=== PATIENT | male | born 1945 | race Caucasian/White ===

== ENCOUNTER 2021-11-05 06:05 | Inpatient (IN) ==
[2021-11-05] MEDS ORDERED: cefOXitin 2,000 MG in 0.9 % Sodium Chloride 20 ML IVP ONE (06:22)
[2021-11-05] MEDS ORDERED: Ringers Solution, Lactated 1,000 ML IVC SCH (06:30)
[2021-11-05] MEDS ORDERED: Acetaminophen IV 1,000 MG/100 ML BAG IVPB ONE (06:59)
[2021-11-05] MEDS ORDERED: Lidocaine -MPF 2% 2 ML VIAL ONE (07:18)
[2021-11-05] MEDS ORDERED: *HR* Succinylcholine 200 MG/10 ML VIAL IVP ONE (07:18)
[2021-11-05] MEDS ORDERED: Ondansetron 4 MG/2 ML VIAL ONE (07:18)
[2021-11-05] MEDS ORDERED: Lidocaine HCL 4 ML Topical Solution (Laryng-O-Jet Kit Sterile Pak) TP ONE (07:18)
[2021-11-05] MEDS ORDERED: *HR* FentaNYL (PF) 100 MCG/2 ML VIAL ONE ×3 (07:18→11:51)
[2021-11-05] MEDS ORDERED: *HR* Rocuronium Bromide 50 MG/5 ML VIAL ONE ×3 (07:18→10:58)
[2021-11-05] MEDS ORDERED: *HR* Remifentanil 1 MG VIAL IVP ONE ×3 (07:18→11:05)
[2021-11-05] MEDS ORDERED: *HR* Propofol 200 MG/20 ML VIAL IVP ONE (07:18)
[2021-11-05] MEDS ORDERED: Albumin Human 5% 12.5 GM/250 ML IV.SOLN ONE (07:30)
[2021-11-05] MEDS ORDERED: *HR* Vasopressin 20 UNIT/ML VIAL ONE (07:30)
[2021-11-05] MEDS ORDERED: *HR* Phenylephrine 10 MG/ML VIAL ONE (08:43)
[2021-11-05] MEDS ORDERED: Albumin Human 5% 0 GM/0 ML IV.SOLN ONE (10:43)
[2021-11-05] MEDS ORDERED: CefOXitin 1,000 MG VIAL ONE (12:03)
[2021-11-05] MEDS ORDERED: Sugammadex Sodium 200 MG/2 ML VIAL IV ONE (12:12)
[2021-11-05] MEDS ORDERED: CefOXitin 2,000 MG VIAL ONE (12:24)
[2021-11-05] MEDS ORDERED: *HR* HYDROMORPHONE 2 MG/ML VIAL ONE (12:57)
[2021-11-05] MEDS: *HR* HYDROmorphone PF 0.5 MG/0.5 ML SYRINGE IVP PRN ×2 (13:24→13:36)
[2021-11-05] MEDS ORDERED: *HR* Metoprolol 5 MG/5 ML VIAL IVP ONE (13:52)
[2021-11-05] MEDS: *HR* Metoprolol 5 MG/5 ML VIAL IVP PRN ×4 (14:15→14:51)
[2021-11-05] MEDS ORDERED: Naloxone 0.4 MG/ML INJ IVP PRN (16:02)
[2021-11-05] MEDS ORDERED: Ondansetron 4 MG/2 ML VIAL IVP PRN (16:02)
[2021-11-05] MEDS: *HR* HYDROmorphone PCA *PREMADE* 20 MG/1MG/ML (20mL) PCA VIAL IVC PRN (17:03)
[2021-11-05] MEDS: 0.9 % Sodium Chloride 1,000 ML IVC SCH ×2 (17:04→23:39)
[2021-11-05] MEDS: cefOXitin 1,000 MG in 0.9 % Sodium Chloride 10 ML IVP SCH ×2 (17:11→23:41)
[2021-11-05] MEDS: Acetaminophen IV 1,000 MG/100 ML BAG IVPB SCH ×2 (18:25→23:35)
[2021-11-06 05:34] LABS: Basophils % 0.1 %; Hematocrit 31.4 % (37.5-50.1); Hemoglobin 10.1 g/dL (12.9-16.9); Immature Granulocytes % 0.6 % (0-4); Lymphocytes # 0.8 K/mcL (0.6-4.6); Lymphocytes % 4.7 %; Mean Corpuscular HGB Conc 32.2 g/dL (31.6-35.5); Mean Corpuscular Hemoglobin 31.7 pg (28.0-33.3); Mean Corpuscular Volume 98.4 fL (83.0-100.0); Monocytes # 0.8 K/mcL (0.0-1.3); Monocytes % 4.8 %; Neutrophils # 14.4 K/mcL (1.6-8.9); Platelet Count 128 K/mcL (140-400); Red Blood Count 3.19 M/mcL (4.19-5.50); Red Cell Distribution Width 12.9 % (11.5-14.5); Segmented Neutrophils % 89.8 %; White Blood Count 16.1 K/mcL (4.3-11.1)
[2021-11-06 05:48] LABS: Calcium 8.1 mg/dL (8.6-10.3); Potassium 4.6 mEq/L (3.5-5.1)
[2021-11-06] MEDS: Acetaminophen IV 1,000 MG/100 ML BAG IVPB SCH ×4 (05:53→23:23)
[2021-11-06] MEDS ORDERED: 0.9 % Sodium Chloride 500 ML IVC ONE (06:51)
[2021-11-06] MEDS ORDERED: Fluticasone Propionate Nasal 50 MCG/SPRAY BOTTLE NS PRN (07:13)
[2021-11-06] MEDS ORDERED: Saliva Stimulant 44.3ml BOTTLE PO PRN (07:14)
[2021-11-06] MEDS ORDERED: Chloraseptic Spray 177 ML BOTTLE MM PRN (07:14)
[2021-11-06] MEDS: Pantoprazole 40 MG VIAL IVP SCH (09:24)
[2021-11-06] MEDS: 0.9 % Sodium Chloride 1,000 ML IVC SCH ×2 (09:30→17:13)
[2021-11-06] MEDS: cefOXitin 1,000 MG in 0.9 % Sodium Chloride 10 ML IVP SCH (16:57)
[2021-11-06] MEDS: *HR* Heparin 5,000 UNIT/ML VIAL SQ SCH (17:12)
[2021-11-06] MEDS: Artificial Tears SOLN 15 ML BOTTLE BOTH EYES SCH (21:18)
[2021-11-07] MEDS: 0.9 % Sodium Chloride 1,000 ML IVC SCH ×2 (02:31→12:23)
[2021-11-07 03:18] LABS: Basophils % 0.1 %; Hematocrit 28.2 % (37.5-50.1); Hemoglobin 9.1 g/dL (12.9-16.9); Immature Granulocytes % 0.6 % (0-4); Lymphocytes # 1.1 K/mcL (0.6-4.6); Lymphocytes % 8.4 %; Mean Corpuscular HGB Conc 32.3 g/dL (31.6-35.5); Mean Corpuscular Hemoglobin 31.6 pg (28.0-33.3); Mean Corpuscular Volume 97.9 fL (83.0-100.0); Mean Platelet Volume 12.1 fL (9.4-12.4); Monocytes # 0.6 K/mcL (0.0-1.3); Monocytes % 4.6 %; Neutrophils # 11.4 K/mcL (1.6-8.9); Platelet Count 117 K/mcL (140-400); Red Blood Count 2.88 M/mcL (4.19-5.50); Red Cell Distribution Width 13.1 % (11.5-14.5); Segmented Neutrophils % 86.3 %; White Blood Count 13.1 K/mcL (4.3-11.1)
[2021-11-07 03:39] LABS: Calcium 8.2 mg/dL (8.6-10.3); Magnesium 1.9 mg/dL (1.6-2.6); Potassium 4.3 mEq/L (3.5-5.1)
[2021-11-07] MEDS: Acetaminophen IV 1,000 MG/100 ML BAG IVPB SCH ×3 (05:26→17:20)
[2021-11-07] MEDS: *HR* Heparin 5,000 UNIT/ML VIAL SQ SCH ×2 (05:26→17:17)
[2021-11-07] MEDS: Pantoprazole 40 MG VIAL IVP SCH (09:26)
[2021-11-07] MEDS: Artificial Tears SOLN 15 ML BOTTLE BOTH EYES SCH ×4 (09:28→20:38)
[2021-11-07] MEDS: *HR* HYDROmorphone PCA *PREMADE* 20 MG/1MG/ML (20mL) PCA VIAL IVC PRN (09:39)
[2021-11-08 03:53] LABS: Basophils % 0.1 %; Eosinophils % 0.3 %; Hematocrit 28.6 % (37.5-50.1); Hemoglobin 9.4 g/dL (12.9-16.9); Immature Granulocytes % 0.5 % (0-4); Immature Platelets 7.3 % (1.1-6.1); Lymphocytes % 10.4 %; Mean Corpuscular HGB Conc 32.9 g/dL (31.6-35.5); Mean Corpuscular Hemoglobin 31.8 pg (28.0-33.3); Mean Corpuscular Volume 96.6 fL (83.0-100.0); Mean Platelet Volume 11.7 fL (9.4-12.4); Monocytes # 0.4 K/mcL (0.0-1.3); Monocytes % 4.4 %; Neutrophils # 8.3 K/mcL (1.6-8.9); Platelet Count 129 K/mcL (140-400); Red Blood Count 2.96 M/mcL (4.19-5.50); Red Cell Distribution Width 12.8 % (11.5-14.5); Segmented Neutrophils % 84.3 %; White Blood Count 9.9 K/mcL (4.3-11.1)
[2021-11-08 04:11] LABS: BUN/Creatinine Ratio 13 (6-26); Blood Urea Nitrogen 16 mg/dL (8-23); Calcium 8.3 mg/dL (8.6-10.3); Carbon Dioxide 23 mEq/L (23-29); Chloride 106 mEq/L (98-107); Glucose 81 mg/dL (70-105); Magnesium 1.8 mg/dL (1.6-2.6); Osmolality,Calculated 284 (280-300); Phosphorous 2.5 mg/dL (2.7-4.5); Potassium 4.1 mEq/L (3.5-5.1); Sodium 137 mEq/L (136-145); eGFR For African Americans > 60 (> 60); eGFR For Non-African Americans 56 (> 60)
[2021-11-08] MEDS: Acetaminophen IV 1,000 MG/100 ML BAG IVPB SCH ×5 (06:05→23:36)
[2021-11-08] MEDS: *HR* Heparin 5,000 UNIT/ML VIAL SQ SCH ×2 (06:05→17:14)
[2021-11-08] MEDS: Pantoprazole 40 MG VIAL IVP SCH (09:59)
[2021-11-08] MEDS: Artificial Tears SOLN 15 ML BOTTLE BOTH EYES SCH ×4 (10:00→21:51)
[2021-11-08] MEDS: 0.9 % Sodium Chloride 1,000 ML IVC SCH (18:06)
[2021-11-09 02:25] LABS: Basophils % 0.3 %; Hemoglobin 8.6 g/dL (12.9-16.9); Immature Granulocytes % 0.4 % (0-4)
[2021-11-09 02:27] LABS: Eosinophils # 0.3 K/mcL (0.0-0.6); Eosinophils % 3.9 %; Hematocrit 26.7 % (37.5-50.1); Lymphocytes # 1.2 K/mcL (0.6-4.6); Lymphocytes % 17.1 %; Mean Corpuscular HGB Conc 32.2 g/dL (31.6-35.5); Mean Corpuscular Hemoglobin 31.2 pg (28.0-33.3); Mean Corpuscular Volume 96.7 fL (83.0-100.0); Mean Platelet Volume 11.4 fL (9.4-12.4); Monocytes # 0.3 K/mcL (0.0-1.3); Monocytes % 4.2 %; Neutrophils # 5.3 K/mcL (1.6-8.9); Platelet Count 139 K/mcL (140-400); Red Blood Count 2.76 M/mcL (4.19-5.50); Segmented Neutrophils % 74.1 %; White Blood Count 7.2 K/mcL (4.3-11.1)
[2021-11-09 02:51] LABS: BUN/Creatinine Ratio 13 (6-26); Blood Urea Nitrogen 15 mg/dL (8-23); Calcium 8.3 mg/dL (8.6-10.3); Carbon Dioxide 25 mEq/L (23-29); Chloride 107 mEq/L (98-107); Glucose 82 mg/dL (70-105); Magnesium 1.9 mg/dL (1.6-2.6); Osmolality,Calculated 288 (280-300); Phosphorous 2.8 mg/dL (2.7-4.5); Potassium 4.3 mEq/L (3.5-5.1); Sodium 139 mEq/L (136-145); eGFR For African Americans > 60 (> 60); eGFR For Non-African Americans > 60 (> 60)
[2021-11-09] MEDS: Acetaminophen IV 1,000 MG/100 ML BAG IVPB SCH ×3 (06:02→18:11)
[2021-11-09] MEDS: *HR* Heparin 5,000 UNIT/ML VIAL SQ SCH ×2 (06:03→18:10)
[2021-11-09] MEDS: Pantoprazole 40 MG VIAL IVP SCH (09:38)
[2021-11-09] MEDS: Artificial Tears SOLN 15 ML BOTTLE BOTH EYES SCH ×4 (09:39→20:39)
[2021-11-09] MEDS: 0.9 % Sodium Chloride 1,000 ML IVC SCH (09:45)
[2021-11-09] MEDS ORDERED: D5% in 0.45% NACL w KCl 20 MEQ/1,000 ML MLS IVC SCH (10:45)
[2021-11-10] MEDS: Acetaminophen IV 1,000 MG/100 ML BAG IVPB SCH ×2 (02:13→05:03)
[2021-11-10] MEDS: *HR* Heparin 5,000 UNIT/ML VIAL SQ SCH (05:03)
[2021-11-10] MEDS: Pantoprazole 40 MG VIAL IVP SCH (08:35)
[2021-11-10] MEDS: Artificial Tears SOLN 15 ML BOTTLE BOTH EYES SCH (08:36)
[2021-11-10 11:37] VITALS: BP 149/75; PULSE 59; TEMP 97.9; O2SAT 97
== END 2021-11-10 16:00 | disposition home or self-care (01) | DRG 330 ==
LOC: SAMDAY 06:05 → 3ANU 15:42
PROVIDERS: ADMIT Surgery; ATTEND Surgery